=== PATIENT | male | born 1935 | race Caucasian/White ===

== ENCOUNTER 2017-02-14 13:54 | Emergency (ER) | payer OTHER, MEDICARE ==
[~2017-02-14 13:54] MED LIST: ASPI81TA82 PO; DIOV160T60 PO; ESCI10TA PO; GLYB1TAB50 PO; HYDR-2768 PO; METO25 PO; NIFE1TAB85 PO; PRAV20 PO; PROS5TAB2 PO; TAMS0.4C67 PO; TRAM50 PO
[2017-02-14 14:30] VITALS: BP 136/57; PULSE 58; RESP 20; TEMP 98.1; O2SAT 95
[2017-02-14] MEDS ORDERED: METO25TA6 PO (14:44)
[2017-02-14] MEDS ORDERED: PRAV20TA2 PO (14:44)
[2017-02-14] MEDS ORDERED: HYDR25TA5 PO (14:44)
[2017-02-14] MEDS ORDERED: TAMS0.4C4 PO (14:44)
[2017-02-14] MEDS ORDERED: ESCI5TAB PO (14:44)
[2017-02-14] MEDS ORDERED: NIFE20 PO (14:44)
[2017-02-14] MEDS ORDERED: VALS1TAB65 PO (14:44)
[2017-02-14] MEDS ORDERED: ASPI81CH CHEW (14:44)
[2017-02-14] MEDS ORDERED: NIFE10CA PO (14:44)
[2017-02-14] MEDS ORDERED: GLYB2.5T3 PO (14:44)
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
--- NOTE | 2017-02-14 15:16 | RADRPT ---
EXAM DATE/TIME: 02/14/2017 14:25 [facility] COMPARISON: CHEST SINGLE AP, December 14, 2014, 11:17. INDICATIONS : Short of breath MEDICAL HISTORY : Hypertension. Hypercholesterolemia. Pneumonia SURGICAL HISTORY : Coronary artery stent. Cardiac catherization ENCOUNTER: Initial ACUITY: 1 day PAIN SCORE: 0/10 LOCATION: Bilateral chest FINDINGS: The cardiac silhouette is enlarged in transverse diameter. There are findings of congestive heart gabrielle lure with interstitial and alveolar opacity bilaterally. No pleural effusions are identified. There i s prominence of the aortic knob is with calcification characteristic of atherosclerotic vascular dise ase. CONCLUSION: 1. Cardiomegaly and findings of congestive heart failure. Chino Koehler MD on February 14, 2017 at 15:15 Board Certified Radiologist. This report was verified electronically.
[2017-02-14] MEDS ORDERED: HYDR-3533 PO (15:41)
[2017-02-14 16:11] VITALS: BP 136/67
== END 2017-02-14 16:20 | disposition home or self-care (01) ==
LOC: PHED 13:54
DX: S20.219A Contusion of unspecified front wall of thorax, initial encounter (principal); M79.602 Pain in left arm; M79.605 Pain in left leg; I11.0 Hypertensive heart disease with heart failure; E11.9 Type 2 diabetes mellitus without complications; V49.49XA Driver injured in collision with other motor vehicles in traffic accident, initial encounter; Z79.01 Long term (current) use of anticoagulants
CPT/HCPCS: 71010; 99283